=== PATIENT | male | born 1940 ===

== ENCOUNTER 2024-10-18 08:00 | Outpatient (CLI) | payer MEDICARE, BC | END 2024-10-18 08:01 | disposition home or self-care (01) | LOC: PET 08:00 | PROVIDERS: ATTEND Internal Medicine Hematology & Oncology | DX: C43.39 Malignant melanoma of other parts of face (principal); R91.8 Other nonspecific abnormal finding of lung field | CPT/HCPCS: 78816; A9552 ==

== ENCOUNTER 2024-12-06 08:00 | Outpatient (CLI) | payer MEDICARE, BC | END 2024-12-06 08:01 | disposition home or self-care (01) | LOC: PET 08:00 | PROVIDERS: ATTEND Internal Medicine Hematology & Oncology | DX: C43.39 Malignant melanoma of other parts of face (principal); R59.0 Localized enlarged lymph nodes; J84.10 Pulmonary fibrosis, unspecified | CPT/HCPCS: 78816; A9552 ==

== ENCOUNTER 2025-05-17 11:00 | Outpatient (CLI) | payer MEDICARE, BC | END 2025-05-17 11:01 | disposition home or self-care (01) | LOC: PET 11:00 | PROVIDERS: ATTEND Internal Medicine Hematology & Oncology | DX: C43.39 Malignant melanoma of other parts of face (principal) | CPT/HCPCS: 78815; A9552 ==